=== PATIENT | male | born 1950 | race Caucasian/White ===

== ENCOUNTER 2017-04-29 09:12 | Emergency (ER) | payer OTHER ==
[2017-04-29 09:24] VITALS: BMI 29.5
--- NOTE | 2017-04-29 09:37 | PDOC ---
History of Present Illness - General Chief Complaint: Chest Pain Stated Complaint: CHEST PAIN Time Seen by Provider: 04/29/17 09:36 - History of Present Illness Initial Comments: 04/29/17 09:37 Mr. Jon is a 66 yo male with a significant past medical history of gallstone pancreatitis with cholecystectomy who presents to the emergency department with a 3 week history of chest pain. He reports that he saw his pcp last week and was told to get his pancreas levels checked out in the ER. He further reports that he occasionally vomits after meals recently. Denies any sick contacts or other symptoms. The patient denies chest pain, shortness of breath, headache and dizziness. Denies fever, chills, diarrhea and constipation. Denies dysuria, frequency, urgency and hematuria. Allergies: NKDA Past surgical history: Cholecystectomy Past History - Past Medical History Allergies/Adverse Reactions: Allergies Allergy/AdvReac Type Severity Reaction Status Date / Time No Known Allergies Allergy Verified 04/29/17 09:19 Home Medications: Ambulatory Orders Nitroglycerin Sublingual [Nitrostat -] 0.4 mg SL PRN PRN 07/02/16 Anemia: No Asthma: No Cancer: No Cardiac Disorders: Yes (ANGINA/ BRADYCARDIA) CVA: No COPD: No CHF: No Dementia: No Diabetes: No GI Disorders: No Disorders: No HTN: Yes Hypercholesterolemia: Yes Liver Disease: No Seizures: No Thyroid Disease: No - Surgical History Abdominal Surgery: No Appendectomy: No Cardiac Surgery: No Cholecystectomy: Yes Lung Surgery: No Neurologic Surgery: No Orthopedic Surgery: No - Immunization History Immunization Up to Date: Yes - Suicide/Smoking/Psychosocial Hx Smoking Status: No Smoking History: Never smoked Have you smoked in the past 12 months: No Number of Cigarettes Smoked Daily: 0 Information on smoking cessation initiated: No Hx Alcohol Use: No Drug/Substance Use Hx: No Substance Use Type: None Hx Substance Use Treatment: No Review of Systems - Review of Systems Comments:: 04/29/17 09:37 GENERAL/CONSTITUTIONAL: No fever or chills. No weakness. HEAD, EYES, EARS, NOSE AND THROAT: No change in vision. No ear pain or discharge. No sore throat. CARDIOVASCULAR: +3 weeks of substernal chest pain. RESPIRATORY: No cough, wheezing, or hemoptysis. GASTROINTESTINAL: +Occasional nausea and vomiting after meals. No diarrhea or constipation. GENITOURINARY: No dysuria, frequency, or change in urination. MUSCULOSKELETAL: No joint or muscle swelling or pain. No neck or back pain. SKIN: No rash NEUROLOGIC: No headache, vertigo, loss of consciousness, or change in strength/ sensation. ENDOCRINE: No increased thirst. No abnormal weight change HEMATOLOGIC/LYMPHATIC: No anemia, easy bleeding, or history of blood clots. ALLERGIC/IMMUNOLOGIC: No hives or skin allergy. *Physical Exam - Vital Signs Last Vital Signs Temp Pulse Resp BP Pulse Ox 97.7 F 50 L 15 146/80 99 04/29/17 09:20 04/29/17 09:20 04/29/17 09:20 04/29/17 09:20 04/29/17 09:20 - Physical Exam Comments: 04/29/17 09:37 GENERAL: Awake, alert, and fully oriented, in no acute distress HEAD: No signs of trauma, normocephalic, atraumatic EYES: PERRLA, EOMI, sclera anicteric, conjunctiva clear ENT: Auricles normal inspection, hearing grossly normal, nares patent, oropharynx clear without exudates. Moist mucosa NECK: Normal ROM, supple, no lymphadenopathy, JVD, or masses LUNGS: No distress, speaks full sentences, clear to auscultation bilaterally HEART: Regular rate and rhythm, normal S1 and S2, no murmurs, rubs or gallops, peripheral pulses normal and equal bilaterally. ABDOMEN: +Moderate midline epigastric tenderness. Soft, normoactive bowel sounds. No guarding, no rebound. No masses EXTREMITIES: Normal inspection, Normal range of motion, no edema. No clubbing or cyanosis. NEUROLOGICAL: Cranial nerves II through XII grossly intact. Normal speech, normal gait, no focal sensorimotor deficits SKIN: Warm, Dry, normal turgor, no rashes or lesions noted. ED Treatment Course - LABORATORY CBC & Chemistry Diagram: 04/29/17 10:10 04/29/17 10:10 Medical Decision Making - Medical Decision Making 04/29/17 13:50 Mr. Jon presents for a several week history of epigastric pain with pancreatitis history. Labs as below, CT read negative for acute pathology. Patient in no acute distress, will provide zantac for indigestion and discharge with instructions to follow-up with GI as needed. Laboratory Results - last 24 hr 04/29/17 04/29/17 10:10 10:10 WBC 7.2 RBC 4.60 Hgb 13.5 Hct 40.3 MCV 87.6 MCH 29.5 MCHC 33.6 RDW 14.1 Plt Count 191 D MPV 8.9 Neutrophils % 58.8 D Lymphocytes % 29.2 D Monocytes % 9.5 Eosinophils % 2.1 Basophils % 0.4 Sodium 139 Potassium 4.2 Chloride 105 Carbon Dioxide 30 D Anion Gap 4 L BUN 16 Creatinine 0.9 Creat Clearance w eGFR > 60 Random Glucose 100 Calcium 9.1 Total Bilirubin 0.5 D AST 30 D ALT 37 D Alkaline Phosphatase 100 D Creatine Kinase 224 Troponin I < 0.02 Total Protein 7.6 D Albumin 4.0 D Lipase 335 *DC/Admit/Observation/Transfer Diagnosis at time of Disposition: Dyspepsia - Discharge Dispostion Disposition: HOME - Referrals Referrals: Tristan Verduzco MD [Primary Care Provider] - Brent Garrison DO [Staff Physician] - - Patient Instructions Printed Discharge Instructions: DI for Dyspepsia Additional Instructions: Please follow-up with your PCP for further care as needed. We apologize that you have been feeling ill, we hope you feel better shortly.
--- NOTE | 2017-04-29 09:54 | PDOC ---
Attending Attestation - Resident Resident Name: Natalio Valdez - ED Attending Attestation I have performed the following: I have examined & evaluated the patient, The case was reviewed & discussed with the resident, I agree w/resident's findings & plan, Exceptions are as noted - HPI HPI: 04/29/17 09:52 Epigastric Pain, Pancreatitis - Physicial Exam PE: 04/29/17 09:53 VSS/Nontoxic/NAD - Medical Decision Making 04/29/17 09:[address] Valdez's Assessment and Plan
[2017-04-29 10:15] LABS: BASOPHIL 0.4 % (0-2.0); EOSINOPHIL 2.1 % (0-4.5); MCH 29.5 pg (25.7-33.7); MCHC 33.6 g/dl (32.0-35.9); MEAN CELL VOLUME 87.6 fl (80-96); MEAN PLT VOLUME 8.9 fl (7.5-11.1); NEUTROPHILS 58.8 % (42.8-82.8); PLATELET COUNT 191 K/MM3 (134-434); RDW 14.1 % (11.9-15.9); WHITE BLOOD COUNT 7.2 K/mm3 (4.0-10.0)
[2017-04-29 10:47] LABS: ANION GAP 4 (8-16); BILIRUBIN,TOTAL 0.5 mg/dL (0.2-1.0); CALCIUM 9.1 mg/dL (8.5-10.1); CO2 30 mmol/L (21-32); CREATININE 0.9 mg/dL (0.7-1.3); GLUCOSE,RANDOM 100 mg/dL (74-106); SGOT/AST 30 U/L (15-37); SGPT/ALT 37 U/L (12-78); TOT PROT 7.6 g/dl (6.4-8.2)
[2017-04-29 10:50] LABS: ALK PHOS 100 U/L (45-117); CPK 224 IU/L (39-308); TROPONIN I < 0.02 ng/ml (0.00-0.05)
--- NOTE | 2017-04-29 11:54 | EKG ---
Test Reason : Blood Pressure : / mmHG Vent. Rate : 055 BPM Atrial Rate : 055 BPM P-R Int : 158 ms QRS Dur : 108 ms QT Int : 422 ms P-R-T Axes : 024 -10 011 degrees QTc Int : 403 ms SINUS BRADYCARDIA MINIMAL VOLTAGE CRITERIA FOR LVH, MAY BE NORMAL VARIANT EARLY REPOLARIZATION BORDERLINE ECG WHEN COMPARED WITH ECG OF 02-JUL-2016 19:09, VENT. RATE HAS DECREASED BY [address] B[address]OVING OF [address] SEGMENTS IN LEAD AND aVL CLINICAL CORRELATION IS RECOMMENDED Confirmed by RHODA LLOYD MD ([id number]) on 04/29/2017 11:53:42 AM Referred By: Confirmed By:RHODA LLOYD MD
[2017-04-29] MEDS ORDERED: RANITIDINE HCL 150 MG TABLET (FP) PO ONE (13:49)
[2017-04-29] MEDS ORDERED: RANITIDINE HCL 150 MG TABLET (FP) ONE (14:05)
[2017-04-29 14:13] VITALS: BP 135/80
[2017-04-29 14:27] VITALS: PULSE 57; TEMP 97.7
== END 2017-04-29 14:28 | disposition home or self-care (01) ==
LOC: JER 09:12
DX: R10.13 Epigastric pain (principal); K85.10 Biliary acute pancreatitis without necrosis or infection; I10 Essential (primary) hypertension; E78.00 Pure hypercholesterolemia, unspecified; I20.9 Angina pectoris, unspecified
CPT/HCPCS: 36415; 71260-TC; 74177-TC; 80053; 82553; 83690; 84484; 85025; 93005; 93010; 99285-25

== ENCOUNTER 2019-05-10 09:11 | Emergency (ER) | payer OTHER ==
[2019-05-10 09:18] VITALS: TEMP 98; BMI 31.3
--- NOTE | 2019-05-10 09:21 | PDOC ---
History of Present Illness - General Chief Complaint: Pain, Acute Stated Complaint: PAIN RIGHT FLANK - History of Present Illness Initial Comments: 05/10/19 09:18 Mr. Jon is a 68 yo male w/ pmh of gallstone pancreatitis s/p cholecystectomy who presents for evaluation of 2 week history of RUQ abdominal pain that he reports became acutely worse today and radiated to LUQ as well. Patient denies any other symptoms at this time however became concerned with increased pain, prompting his presentation. The patient denies chest pain, shortness of breath, headache and dizziness. Denies fever, chills, nausea, vomit, diarrhea and constipation. Denies dysuria, frequency, urgency and hematuria. Past History - Past Medical History Allergies/Adverse Reactions: Allergies Allergy/AdvReac Type Severity Reaction Status Date / Time No Known Allergies Allergy Verified 05/10/19 09:17 Home Medications: Ambulatory Orders NK [No Known Home Medication] 05/10/19 Anemia: No Asthma: No Cancer: No Cardiac Disorders: Yes (ANGINA/ BRADYCARDIA) CVA: No COPD: No CHF: No Dementia: No Diabetes: No GI Disorders: No Disorders: No HTN: Yes Hypercholesterolemia: Yes Liver Disease: No Seizures: No Thyroid Disease: No Other medical history: pacreatitis - Surgical History Abdominal Surgery: Yes (pancreas stents) Appendectomy: No Cardiac Surgery: No Cholecystectomy: Yes Lung Surgery: No Neurologic Surgery: No Orthopedic Surgery: No - Immunization History Immunization Up to Date: Yes - Psycho Social/Smoking Cessation Hx Smoking Status: No Smoking History: Never smoked Have you smoked in the past 12 months: No Number of Cigarettes Smoked Daily: 0 Information on smoking cessation initiated: No Hx Alcohol Use: No Drug/Substance Use Hx: No Substance Use Type: None Hx Substance Use Treatment: No Review of Systems - Review of Systems Comments:: 05/10/19 09:21 GENERAL/CONSTITUTIONAL: No fever or chills. No weakness. HEAD, EYES, EARS, NOSE AND THROAT: No change in vision. No ear pain or discharge. No sore throat. CARDIOVASCULAR: No chest pain or shortness of breath RESPIRATORY: No cough, wheezing, or hemoptysis. GASTROINTESTINAL: +RUQ pain radiating to L as described. No nausea, vomiting, diarrhea or constipation. GENITOURINARY: No dysuria, frequency, or change in urination. MUSCULOSKELETAL: No joint or muscle swelling or pain. No neck or back pain. SKIN: No rash NEUROLOGIC: No headache, vertigo, loss of consciousness, or change in strength/ sensation. ENDOCRINE: No increased thirst. No abnormal weight change HEMATOLOGIC/LYMPHATIC: No anemia, easy bleeding, or history of blood clots. ALLERGIC/IMMUNOLOGIC: No hives or skin allergy. *Physical Exam - Vital Signs Last Vital Signs Temp Pulse Resp BP Pulse Ox 98 F 59 L 19 148/60 100 05/10/19 09:16 05/10/19 09:16 05/10/19 09:16 05/10/19 09:16 05/10/19 09:16 - Physical Exam Comments: 05/10/19 09:21 GENERAL: Awake, alert, and fully oriented, in no acute distress HEAD: No signs of trauma, normocephalic, atraumatic EYES: PERRLA, EOMI, sclera anicteric, conjunctiva clear ENT: Auricles normal inspection, hearing grossly normal, nares patent, oropharynx clear without exudates. Moist mucosa NECK: Normal ROM, supple, no lymphadenopathy, JVD, or masses LUNGS: No distress, speaks full sentences, clear to auscultation bilaterally HEART: Regular rate and rhythm, normal S1 and S2, no murmurs, rubs or gallops, peripheral pulses normal and equal bilaterally. ABDOMEN: +Patient guarding and TTP diffusely, localizing pain to RUQ. Soft, normoactive bowel sounds. No masses EXTREMITIES: Normal inspection, Normal range of motion, no edema. No clubbing or cyanosis. NEUROLOGICAL: Cranial nerves II through XII grossly intact. Normal speech, normal gait, no focal sensorimotor deficits SKIN: Warm, Dry, normal turgor, no rashes or lesions noted. ED Treatment Course - LABORATORY CBC & Chemistry Diagram: 05/10/19 10:00 05/10/19 10:00 Medical Decision Making - Medical Decision Making 05/10/19 11:03 Mr. Jon is a 68 yo male w/ pmh as described who presents for evaluation of abdominal pain concerning for pancreatitis vs. appendicitis vs. other acute abdominal process. Patient evaluated with labs as below which were non- contributory. Given patient's guarding w/ severity of tenderness will evaluate further with CT abdomen/pelvis w/ IV contrast. 05/10/19 13:[address] negative for acute process. Patient labs wnl as below. No concern for acute process at this time. Patient reporting moderate improvement of symptoms s/p pepcid. Patient given additional maalox for further symptomatic relief. Discharging with GI follow-up to home. Discharge - Discharge Information Problems reviewed: Yes Clinical Impression/Diagnosis: Abdominal pain Qualifiers: Abdominal location: unspecified location Qualified Code(s): R10.9 - Unspecified abdominal pain Disposition: HOME - Follow up/Referral Referrals: Josh Morales MD [Primary Care Provider] - - Patient Discharge Instructions Patient Printed Discharge Instructions: DI for Gastritis Additional Instructions: You were evaluated today in the ER for your stomach pain. We performed labs and CT scan of your abdomen which was all negative. Your symptoms improved following pepcid and maalox. We believe you are safe for discharge at this time. Please follow-up with Dr. Morales as discussed for further evaluation as soon as possible. Return to ER if any fever, chills, increase of pain, or other concerning symptoms. - Post Discharge Activity
[2019-05-10] MEDS ORDERED: ACETAMINOPHEN 1000 MG/100 ML VIAL (NON FORMULARY) IVPB ONE (09:41)
[2019-05-10] MEDS ORDERED: SODIUM CHLORIDE 1,000 ML IV STA (09:41)
[2019-05-10] MEDS ORDERED: FAMOTIDINE 20 MG/50 ML IVPB 20 MG/50 ML MG IVPB ONE ×2 (09:41→09:52)
[2019-05-10] MEDS ORDERED: ACETAMINOPHEN INJECTION 100 ML IVPB ONE (09:51)
[2019-05-10 10:26] LABS: BASO % 0.5 % (0-2.0); EOS % 1.3 % (0-4.5); HEMATOCRIT 41.5 % (35.4-49); LYMPH % 24.2 % (8-40); MCH 29.5 pg (25.7-33.7); MCHC 33.7 g/dl (32.0-35.9); MEAN CELL VOLUME 87.3 fl (80-96); MEAN PLT VOLUME 8.9 fl (7.5-11.1); MONO % 8.7 % (3.8-10.2); NEUT % 65.3 % (42.8-82.8); PLATELET COUNT 207 K/MM3 (134-434); RBC 4.76 M/mm3 (4.00-5.60); RDW 14.5 % (11.9-15.9); WHITE BLOOD COUNT 6.6 K/mm3 (4.0-10.0)
[2019-05-10 10:51] LABS: AMYLASE 112 U/L (25-115); LIPASE 287 U/L (73-393)
[2019-05-10 10:55] LABS: ALBUMIN 4.3 g/dl (3.4-5.0); BILIRUBIN,TOTAL 0.5 mg/dL (0.2-1); CALCIUM 9.4 mg/dL (8.5-10.1); CREATININE 1.1 mg/dL (0.55-1.3); POTASSIUM 4.2 mmol/L (3.5-5.1); TOT PROT 7.5 g/dl (6.4-8.2)
[2019-05-10 10:56] LABS: INR 0.99 (0.83-1.09); PROTHROMBIN TIME (PATIENT) 11.7 SEC (9.7-13.0)
[2019-05-10 10:58] LABS: ACTIVATED PTT 33.6 SECONDS (25.2-36.5)
[2019-05-10 10:59] LABS: URINE APPEARANCE CLEAR; URINE BILIRUBIN NEGATIVE (NEGATIVE); URINE COLOR YELLOW; URINE GLUCOSE (UA) NEGATIVE (NEGATIVE); URINE KETONE TRACE (NEGATIVE); URINE LEUK ESTERASE NEGATIVE (NEGATIVE); URINE NITRITE NEGATIVE (NEGATIVE); URINE PROTEIN NEGATIVE (NEGATIVE); URINE UROBILINOGEN 0.2 mg/dL (0.2-1.0)
--- NOTE | 2019-05-10 12:45 | PDOC ---
Attending Attestation - Resident Resident Name: Natalio Valdez - ED Attending Attestation I have performed the following: I have examined & evaluated the patient, The case was reviewed & discussed with the resident, I agree w/resident's findings & plan, Exceptions are as noted - HPI HPI: 05/10/19 12:42 60-year-old male history of previous cholecystectomy here today complaining of generalized abdominal pain. Patient states he has had abdominal pain for 2weeks does not related to food no fever or chills. Denies any hematuria or dysuria. Pain is worse on the right side rating to the right flank is constant dull. No nausea no vomiting no associated diarrhea. No fever or chills has not had similar pain in the past - Physicial Exam PE: 05/10/19 12:43 Awake alert no acute distress lungs are clear bilaterally heart is regular rhythm no murmurs rubs or gallops abdomen is soft tenderness diffusely on the right side. Patient does have rebound. No guarding no CVA tenderness skin is warm and dry neuro A&O x3. - Medical Decision Making 05/10/19 12:44 68-year-old male history of previous cholecystectomy here today complaining of right-sided abdominal pain. Does have tenderness on the right upper and lower quadrants. With rebound differential includes appendicitis, perforated viscus, right-sided diverticulitis, pyelonephritis renal colic. Plan basic labs lipase would likely require a CT abdomen and pelvis urinalysis to rule out UTI
[2019-05-10] MEDS ORDERED: MAG HYDROX/AL HYDROX/SIMETH 30 ML UNIT-DOSE CUP PO ONE (13:03)
[2019-05-10] MEDS ORDERED: MAG HYDROX/AL HYDROX/SIMETH 30 ML UNIT-DOSE CUP ONE (13:22)
[2019-05-10 13:26] VITALS: BP 127/74; PULSE 80
== END 2019-05-10 13:27 | disposition home or self-care (01) ==
LOC: JER 09:11
PROC: 3E033GC Introduction of Other Therapeutic Substance into Peripheral Vein, Percutaneous Approach (ICD-10-PCS; principal; 2019-05-10)
PROC: 3E033NZ Introduction of Analgesics, Hypnotics, Sedatives into Peripheral Vein, Percutaneous Approach (ICD-10-PCS; 2019-05-10)
DX: R10.9 Unspecified abdominal pain (principal); Z90.49 Acquired absence of other specified parts of digestive tract; I25.119 Atherosclerotic heart disease of native coronary artery with unspecified angina pectoris; I10 Essential (primary) hypertension; R00.1 Bradycardia, unspecified; E78.00 Pure hypercholesterolemia, unspecified; K86.9 Disease of pancreas, unspecified
CPT/HCPCS: 36415; 74177-TC; 80053; 81003; 82150; 83690; 85025; 85610; 85730; 87086; 96365; 96375; 99283-25; J0131; J7030